=== PATIENT | female | born 1960 | race Caucasian/White ===

== ENCOUNTER 2016-11-16 15:23 | Inpatient (IN) | payer OTHER ==
[~2016-11-16] VITALS: Ht 182.9 cm; Wt 86.3 kg
[2016-11-19] MEDS ORDERED: HYDR-3580 PO (15:46)
[2016-11-19] MEDS ORDERED: PANC3600 PO (15:46)
[2016-11-19] MEDS ORDERED: LINA290C PO (15:46)
[2016-11-19] MEDS ORDERED: BETH25TA2 PO (15:46)
[2016-11-23] MEDS ORDERED: SODIUM CHLORID 0.9% 500 ML IV PRN (05:45)
[2016-11-23] MEDS ORDERED: TRANEXAMIC PERI-ARTICULAR 3,000 MG/NS 100 ML P-ARTICULR SCH ×2 (05:45)
[2016-11-23] MEDS ORDERED: LACTATED RINGER'S 1000 ML IV PRN (05:45)
[2016-11-23] MEDS ORDERED: VANCOMYCIN 1000 MG/NS 250 ML (for <70 kg) IV SCH ×2 (05:45)
[2016-11-23] MEDS ORDERED: DEXAMETHASONE SOD PHOS 20 MG/5 ML VIAL IV PRN (05:45)
[2016-11-23] MEDS ORDERED: METOPROLOL TARTRATE 25 MG TAB PO PRN (05:45)
[2016-11-23] MEDS ORDERED: POVIDONE IODINE 5% (ANTISEPSIS KIT) 4 APPLICATIONS EACH NARE PRN (05:45)
[2016-11-23] MEDS ORDERED: CHLORHEXIDINE GLUCONATE 4% SOLN 120 ML BTL TOPICAL SCH (05:45)
[2016-11-23] MEDS ORDERED: TRANEXAMIC ACID INJ 1,200 MG in SODIUM CHLORIDE 0.9% INJ 100 ML IV SCH (05:45)
[2016-11-23] MEDS ORDERED: POVIDONE IODINE 7.5% SCRUB 118 ML BOTTLE TOPICAL SCH (05:45)
[2016-11-23] MEDS ORDERED: INSULIN HUMAN REGULAR 1,000 UNITS/10 ML VIAL SQ PRN (05:45)
[2016-11-23] MEDS ORDERED: ceFAZolin 2 GM PREMIX 50 ML IV SCH (05:45)
[2016-11-23] MEDS ORDERED: EXPAREL PERI-ARTICULAR INJECTION (TOTAL VOL. 60 ML) P-ARTICULR SCH ×2 (05:45)
[2016-11-23] MEDS ORDERED: CHLORHEXIDINE GLUCONATE 2 % 1 PACK (2 CLOTHS) TOPICAL PRN (05:45)
[2016-11-23 05:50] VITALS: BP 108/70; PULSE 60; RESP 16; TEMP 98.1; O2SAT 97
[2016-11-23] MEDS ORDERED: GENTAMICIN SULFATE 80 MG/2 ML VIAL ONE (06:08)
[2016-11-23] MEDS ORDERED: ACETAMINOPHEN 1000 MG/100 ML VIAL IV ONE (06:35)
[2016-11-23] MEDS ORDERED: FAMOTIDINE 20 MG/2 ML VIAL ONE (06:35)
[2016-11-23] MEDS ORDERED: HYDR-3288 PO (06:52)
[2016-11-23] MEDS ORDERED: ENOX40P SQ ×2 (06:53→07:00)
[2016-11-23] MEDS ORDERED: ASPI81CH37 CHEW (06:54)
[2016-11-23] MEDS ORDERED: BISACODYL 10 MG SUPP RECTAL PRN (07:00)
[2016-11-23] MEDS ORDERED: NALOXONE HCL 0.4 MG/ML AMP IV PRN (07:00)
[2016-11-23] MEDS ORDERED: SODIUM CHLORIDE 0.9% FLUSH 5 ML FLUSH IVF PRN (07:00)
[2016-11-23] MEDS ORDERED: Post-op Orders (for Pharmacy) MISC XX ONE (07:00)
[2016-11-23] MEDS ORDERED: DO NOT ADM ANY ANTICOAGULANT DRUGS PRN (08:40)
[2016-11-23] MEDS ORDERED: *morphine SULFATE 8 MG/ML PERIprocedure ONLY ONE ×2 (08:45→08:57)
[2016-11-23] MEDS ORDERED: MIDAZOLAM HCL 2 MG/2 ML VIAL ONE (08:48)
[2016-11-23] MEDS ORDERED: fentaNYL CITRATE 250 MCG/5 ML AMP ONE (08:48)
[2016-11-23] MEDS ORDERED: PROPOFOL 200 MG/20 ML AMP IV ONE (09:16)
[2016-11-23] MEDS ORDERED: PHENYLEPH/NS 1000 MCG/10 ML SYR IV ONE (09:17)
[2016-11-23] MEDS ORDERED: NEOSTIGMINE 3 MG/3 ML SYR IV ONE (09:17)
[2016-11-23] MEDS ORDERED: LACTATED RINGER'S 1000 ML INJ 1,000 ML IV ONE (09:17)
[2016-11-23] MEDS ORDERED: ONDANSETRON HCL 4 MG/2 ML VIAL IV PUSH ONE (09:17)
[2016-11-23] MEDS: SODIUM CHLORIDE 0.9% FLUSH 5 ML FLUSH IVF SCH ×2 (09:18→20:48)
[2016-11-23] MEDS: SODIUM CHLOR 0.9% 1000 ML INJ 1,000 ML IV SCH ×2 (09:18→20:48)
--- NOTE | 2016-11-23 09:37 | RADRPT ---
EXAM DATE/TIME: 11/23/2016 09:06 [facility] COMPARISON: No previous studies available for comparison. INDICATIONS : Post op right total hip replacement. MEDICAL HISTORY : None. SURGICAL HISTORY : None. ENCOUNTER: Subsequent ACUITY: 1 day PAIN SCORE: Non-responsive. LOCATION: Right hip FINDINGS: The patient has undergone a right hip arthroplasty. Orthopedic hardware is in excellent position. The re is no evidence of complication. There are degenerative changes within the left hip. No destructive lesion is seen. CONCLUSION: 1. The patient is post right hip arthroplasty. Hardware is in good position. Carroll Abdullahi MD on November 23, 2016 at 9:29 Board Certified Radiologist. This report was verified electronically.
[2016-11-23 10:24] VITALS: BP 120/63; PULSE 60; RESP 16; TEMP 95.6; O2SAT 100
--- NOTE | 2016-11-23 10:52 | MP ---
cc: SIRENA REHMAN M.D. DATE OF SURGERY: 11/23/2016 PREOPERATIVE DIAGNOSIS Right hip osteoarthritis. POSTOPERATIVE DIAGNOSIS Right hip osteoarthritis. PROCEDURE Right total hip arthroplasty. SURGEON Dr. Sirena Rehman. JAVA SUPPORT ENGINEER Sirena Dobbins PA-C. ANESTHESIA General. ESTIMATED BLOOD LOSS 200 cc. COMPLICATIONS None. IMPLANTS USED DePuy Corail size 13 Press-Fit standard offset femoral stem, size 50 solid [place] Gription cup, size 32 mm ceramic head, +5 neck, 32 mm highly crosslinked polyethylene neutral liner. JUSTIFICATION This patient is a 56-year-old family with a history of severe osteoarthritis involving the right hip. She has severe disabling pain with standing, walking, ambulation, weightbearing activities and even severe pain at rest. She has failed greater than three months of nonoperative conservative treatment to include medications, therapy, ambulatory assisted aids, home exercise program and activity modification. X-rays of the right hip revealed severe end-stage osteoarthritis, [id number] joint space narrowing, subchondral sclerosis, subchondral cysts, osteophyte formation with subluxation. The patient was counseled as to the risks, benefits and alternatives of a total hip arthroplasty. The risks were discussed which include but not limited to anesthesia, infection, damage to nerves and blood vessels, pain, stiffness, fracture-dislocation, leg length discrepancy, blood clot, pulmonary embolism and even . The patient's pain is severe. She favored the benefits over the risks and wish to proceed with surgery. PROCEDURE IN DETAIL A written consent was obtained. The patient was identified by name, taken to the operating room and placed supine on the operating table. General anesthesia was administered as well as two grams of IV Ancef and one gram of IV vancomycin. The right and left feet were placed in padded traction boots. The right hip and right lower extremity were prepped and draped using isopropyl alcohol, Hibiclens solution and ChloraPrep solution. After a timeout was performed a longitudinal incision was made over the anterolateral aspect of the right hip. The fascial layer was incised. Dissection was carried over the tensor fascia travis and beneath the rectus femoris to allow exposure of the anterior hip capsule. A capsulotomy incision was performed. An oscillating saw was used to perform a femoral neck cut. The osteoarthritic femoral head and neck component was removed. A 10 blade scalpel use used to excise the labrum. Sequential reaming began at size 43 and was carried through to size 50. Subsequently a solid [place] 50 mm cup was implanted in approximately 45 degrees of abduction and 10 degrees of anteversion. There was good purchase and fixation after insertion of the cup. A screw hole eliminator was placed followed by a neutral liner. The liner was impacted in place and tested for stability. Attention was turned to the femur where the leg was externally rotated, adducted and extended. The capsule was released off the undersurface of the greater trochanter to allow for elevation and lateralization of the femur. A box cutting osteotome was used to gain entrance into the extramedullary canal of the femur. This was followed by a canal finder and sequential broaching up to size 13. A calcar planer was used to plane the calcar. Trial head and neck combinations were evaluated and final components implanted in place with the current implants. Fluoroscopic imaging showed appropriate implantation of components. The leg could be externally rotated 70 degrees and extended all the way down to the ground without evidence of anterior instability or impingement. The surgical wound was thoroughly irrigated with sterile saline pulse lavage antibiotic-impregnated solution. The fascia was closed with #1 Vicryl suture, subcutaneous layer with 2-0 Vicryl suture, and skin was closed with Dermabond. Sterile dressing was applied. The patient tolerated the procedure well with no intraoperative complications noted. Sirena Dobbins, physician finance assistant certified, was present during the entire procedure to include patient positioning and the procedure itself. The medical necessity of the physician finance assistant was indicated in this case due to the complexity of the procedure. He assisted with appropriate manipulation of the leg and also retraction of muscle, tendon, bone and neurovascular structures. He assisted with preparation of bone and also implantation of the prosthetic replacement. MD MAGGIE Oneil/CECY /8:28 AM /10:31 AM
[2016-11-23 12:00] VITALS: BP 117/79; PULSE 77; RESP 16; TEMP 97.9; O2SAT 95
[2016-11-23] MEDS ORDERED: PANT20 PO (12:44)
[2016-11-23] MEDS ORDERED: MIRA3350 PO (12:47)
[2016-11-23] MEDS ORDERED: DOCU100T9 PO (12:52)
--- NOTE | 2016-11-23 12:53 | PD.CONS ---
[facility] Request[facility] By Angel Bar MD. Reason for Consult Medical Management. Primary Care Physician Non-Staff Diagnoses: History of Present Illness This is a pleasant 55 y/o Female who was brought in by Orthopedic oral surgery technician with Diagnosis of Right Hip OA for Right total hip arthroplasty performed today, as we know she has chronic Abdominal pain, Obstipation, delayed gastric emptying, over 20 adenomatous polyps, left arm malignant melanoma in 2008, CAD status post Pacemaker placement in 2005. the patient consulted Orthopedic surgery with Right hip pain , treated conservatively first with injections, she has transmission specialist Dr. Parmar but no relieve, the patient seen in her bedroom in the presence of nurse, she states she has Low back pain secondary to multiple herniated discs managed by Pain medicine specialist Doctor Parmar for the last 10 years with injections, steroids and Narcotic pain medicine she has also injections to both knees and right hip, since last year in February started with Right hip pain and because did not improve with management given by Pain medicine specialist consulted Doctor Bar. Review of Systems Musculoskeletal: COMPLAINS OF: Joint pain Except as stated in HPI: all other systems reviewed are Neg Past Family Social History Allergies: Coded Allergies: No Known Allergies (Unverified , 11/23/16) Past Medical History OA Left arm malignant Melanoma 2008 Multiple Colon polyps Hyperlipidemia CAD status post Pacemaker placement chronic pain syndrome and chronic narcotic dependence Obstipation Past Surgical History Melanoma on left arm Left ovary removed Pacemaker placement Tonsillectomy Right ankle melanoma Reported Medications Reported Meds & Active Scripts Active Lovenox Inj (Enoxaparin Sodium) 40 Mg/0.4 Ml Syr 40 Mg SQ DAILY Aspirin Low Dose (Aspirin) 81 Mg Chew 81 Mg CHEW BID Lovenox Inj (Enoxaparin Sodium) 40 Mg/0.4 Ml Syr 40 Mg SQ DAILY [place]vine (Hydrocodone-Acetaminophen) 7.5-325 mg Tab 1-2 Tab PO Q6H PRN Reported Protonix (Pantoprazole Sodium) 20 Mg Tab 20 Mg PO DAILY Creon (Pancrelipase) 36,000-114,000-180,000 Units Cap 1 Cap PO TIDPC Bethanechol 25 Mg Tab 25 Mg PO TID Hydrocodone-Acetaminophen 7.5-325 mg Tab 1 Tab PO Q6H PRN Linzess (Linaclotide) 290 Mcg Cap 290 Mcg PO DAILY Active Ordered Medications Current Medications Medications (Trade) Dose Ordered Sig/Silvana Route Start Time Stop Time Status Last Admin Lactated Ringer's 1,000 ml @ 30 mls/hr Q24H PRN IV 11/23/16 05:45 11/26/16 05:44 11/23/16 06:00 (NS 500 ml Inj) 500 ml @ 30 mls/hr [id number] PRN IV 11/23/16 05:45 11/26/16 05:44 (Betadine 7.5% Scrub) 1 applic ONCE TOPICAL 11/23/16 05:45 11/26/16 05:44 Chlorhexidine Gluconate 1 applic 1 applic ONCE TOPICAL 11/23/16 05:45 11/26/16 05:44 Tranexamic Acid 1200 mg/Sodium Chloride 112 ml @ 200 mls/hr ONCE IV 11/23/16 05:45 11/23/16 16:00 11/23/16 07:37 Bupivacaine Liposome 20 ml/ Sodium Chloride 60 ml @ 120 mls/hr ONCE P-ARTICULR 11/23/16 05:45 11/23/16 16:00 11/23/16 07:37 Tranexamic Acid 3000 mg/Sodium Chloride 130 ml @ 260 mls/hr ONCE P-ARTICULR 11/23/16 05:45 11/23/16 16:00 11/23/16 07:38 (NS 1000 ml Inj) 1,000 ml @ 100 mls/hr Q10H IV 11/23/16 07:00 11/23/16 09:18 (NS Flush) 2 ml UNSCH PRN IVF 11/23/16 07:00 IV Flush 2 ml 2 ml BID IVF 11/23/16 09:00 11/23/16 09:18 (Ancef Inj/NS Inj) 100 ml @ 200 mls/hr Q6H IV 11/23/16 12:00 11/24/16 00:29 (Lovenox Inj) 40 mg Q24H SQ 11/24/16 08:00 12/03/16 08:01 (Morphine Inj) 3 mg Q3H PRN IV PUSH 11/23/16 07:00 (Irvine 10-325 Mg) 1 tab Q4H PRN PO 11/23/16 07:00 (Irvine 10-325 Mg) 2 tab Q6H PRN PO 11/23/16 07:00 (Theragran M Tab) 1 tab BID PO 11/24/16 21:00 01/23/17 20:59 (Zofran Inj) 4 mg Q6H PRN IVP 11/23/16 07:00 (Colace) 100 mg BID PO 11/24/16 21:00 (Ambien) 5 mg HS PRN PO 11/23/16 07:00 (Dulcolax Supp) 10 mg DAILY PRN RECTAL 11/23/16 07:00 (Narcan Inj) 0.4 mg UNSCH PRN IV 11/23/16 07:00 (Benadryl Inj) 25 mg Q6H PRN IV 11/23/16 07:00 Miscellaneous Information ALL NURSING DEPARTME... UNSCH PRN .XX 11/23/16 08:40 11/24/16 08:39 Family History Mother with Ovarian Cancer but really do not know her history due to no communication. Social History Recent history of Tobacco dependency until May this year Disabled patient Occasional alcohol abuse Physical Exam Vital Signs Vital Signs Date Time Temp Pulse Resp B/P Pulse Ox O2 Delivery O2 Flow Rate FiO2 11/23/16 12:00 97.9 77 16 117/79 95 11/23/16 10:24 95.6 60 16 120/63 100 11/23/16 09:30 97.5 60 16 124/62 100 Nasal Cannula 2 11/23/16 09:15 62 17 130/57 100 Nasal Cannula 2 11/23/16 09:00 59 15 129/61 99 Nasal Cannula 2 11/23/16 08:45 62 16 123/56 100 Nasal Cannula 2 11/23/16 08:41 97.5 73 13 106/64 98 Nasal Cannula 2 11/23/16 05:50 98.1 60 16 108/70 97 Physical Exam GENERAL: This is a well-nourished, well-developed patient, in no apparent distress. SKIN: No rashes, ecchymoses or lesions. Cool and dry. HEAD: Atraumatic. Normocephalic. No temporal or scalp tenderness. EYES: Pupils equal round and reactive. Extraocular motions intact. ENT: Nose without bleeding, purulent drainage or septal hematoma. NECK: Trachea midline. No JVD or lymphadenopathy. Supple, nontender, no meningeal signs. CARDIOVASCULAR: Regular rate and rhythm without murmurs, gallops, or rubs. RESPIRATORY: Clear to auscultation. Breath sounds equal bilaterally. No wheezes , rales, or rhonchi. GASTROINTESTINAL: Abdomen soft, non-tender, nondistended. No hepato-splenomegaly , or palpable masses. No guarding. MUSCULOSKELETAL: Extremities without clubbing, cyanosis, or edema. Right hip dressed. NEUROLOGICAL: Awake and alert. No Focal deficits. Laboratory Laboratory Tests Test 11/23/16 05:58 Blood Type A POSITIVE Antibody Screen NEGATIVE Blood Bank Comment Imaging Last Impressions Hip and Pelvis X-Ray 11/23/16 0000 Signed Impressions: Service Date/Time: Wednesday, November 23, 2016 09:06 - CONCLUSION: 1. The patient is post right hip arthroplasty. Hardware is in good position. Carroll Abdullahi MD Assessment and Plan Assessment and Plan 1. Right Hip OA status post Right total hip arthroplasty 11/24/16 2. Left arm malignant melanoma 2009 and right ankle melanoma removed 3. CAD status post Pacemaker placement 4. chronic Pain syndrome and narcotic dependence pain medicine specialist Doctor Ghulam as Primary Pain medicine specialist 5. Obstipation asking for her Linzess will continue this medicine the patient has it if not provided by the hospital. Appreciated Doctor Angel Bar for this kindly consult, patient stable will follow along with you. DVT prophylaxis by Orthopedic surgery. Code Status Full Code. Discussed Condition With Patient and nurse, all questions answered to the best of my abilities Maximiliano Claire MD Nov 23, 2016 12:53
--- NOTE | 2016-11-23 13:10 | HHI.DCPOC ---
Discharge Care Plan Diagnosis: (1) Primary localized osteoarthrosis, pelvic region and thigh Your Health Problems Are: Difficulty with ADL Goals to Promote Your Health * To prevent worsening of your condition and complications * To maintain your health at the optimal level Directions to Meet Your Goals Take your medications as prescribed Follow your dietary instruction Follow activity as directed Keep your appointments as scheduled Take your immunizations and boosters as scheduled If your symptoms worsen call your PCP, if no PCP go to Urgent Care Center or Emergency Room Smoking is Dangerous to Your Health. Avoid second hand smoke Call the 24-hour hour crisis hotline for domestic abuse at Angel Dobbins Nov 23, 2016 13:10
--- NOTE | 2016-11-23 13:11 | HHI.FF ---
Face to Face Verification Diagnosis: (1) Primary localized osteoarthrosis, pelvic region and thigh Physical Therapy Gait training, Safety evaluation, Transfer training, bed to chair Hip: Total hip, Protocol: Right Right LE Weight Bearing: WB as tolerated Nursing RN: 3 days/week x 2 weeks Nursing: Bre teaching, Dressing changes Dressing Changes: Daily dressing change I have seen patient Merry Solares on 11/23/16. My clinical findings support the need for the requested home health care services because: Limited ability to care for self High risk of falls I certify that my clinical findings support that this patient is homebound because: Post-op weakness Unsteady gait/balance Angel Dobbins Nov 23, 2016 13:11
[2016-11-23] MEDS ORDERED: WALKER WHEELS/F1 MIS (13:13)
[2016-11-23] MEDS ORDERED: COMMODE 3-IN-11 MIS (13:13)
[2016-11-23] MEDS: ACETAMINOPHEN/HYDROcodone 325 MG/10 MG TAB PO PRN ×2 (14:35→20:48)
[2016-11-23] MEDS: ONDANSETRON HCL 4 MG/2 ML VIAL IVP PRN ×2 (14:38→20:49)
--- NOTE | 2016-11-23 15:14 | RADRPT ---
EXAM DATE/TIME: 11/23/2016 07:06 [facility] COMPARISON: HIP RIGHT (AP&LAT 2/3VWS) W AP PELVIS, November 23, 2016, 9:06. INDICATIONS : Right anterior hip replacement. MEDICAL HISTORY : Arthritis. SURGICAL HISTORY : Pacemaker. ENCOUNTER: Initial ACUITY: 1 day PAIN SCORE: Non-responsive. LOCATION: Right anterior hip. FINDINGS: Total hip arthroplasty is in place. The femoral and acetabular components appear intact. There are no signs of loosening or fracture. CONCLUSION: Intact total hip prosthesis for nataliia. Winter Araiza MD on November 23, 2016 at 15:13 Board Certified Radiologist. This report was verified electronically.
[2016-11-23 16:00] VITALS: BP 100/60; PULSE 73; RESP 16; TEMP 97.7; O2SAT 96
[2016-11-23 17:35] LABS: MAGNESIUM 1.2 MG/DL (1.5-2.5)
[2016-11-23 18:01] LABS: HDL CHOLESTEROL 45.3 MG/DL (40.0-60.0); LDL CHOLESTEROL 119 MG/DL (0-99)
[2016-11-23 20:15] VITALS: BP 98/55; PULSE 76; RESP 16; TEMP 98.3; O2SAT 99
[2016-11-23] MEDS: ZOLPIDEM TARTRATE 5 MG TAB PO PRN (20:48)
[2016-11-23] MEDS: diphenhydrAMINE HCL 50 MG/ML VIAL IV PRN (21:40)
[2016-11-24 00:10] VITALS: BP 107/51; PULSE 80; RESP 16; TEMP 98.7; O2SAT 96
[2016-11-24] MEDS: SODIUM CHLOR 0.9% 1000 ML INJ 1,000 ML IV SCH ×3 (02:27→22:50)
[2016-11-24 04:20] VITALS: BP 90/51; PULSE 76; RESP 16; TEMP 98.2; O2SAT 98
[2016-11-24] MEDS: ONDANSETRON HCL 4 MG/2 ML VIAL IVP PRN ×4 (06:08→23:02)
[2016-11-24] MEDS: ACETAMINOPHEN/HYDROcodone 325 MG/10 MG TAB PO PRN ×4 (06:09→23:02)
[2016-11-24 06:43] LABS: HEMATOCRIT 25.9 % (35.0-46.0); MEAN CELL VOLUME 90.9 FL (80.0-100.0); MEAN CORPUSCULAR HEMOGLOBIN 30.8 PG (27.0-34.0); MEAN CORPUSCULAR HGB CONC 33.8 % (32.0-36.0); PLATELET COUNT 177 TH/MM3 (150-450); RED BLOOD COUNT 2.85 MIL/MM3 (4.00-5.30); RED CELL DISTRIBUTION WIDTH 13.1 % (11.6-17.2); REVIEW FLAG FINAL; WHITE BLOOD COUNT 7.4 TH/MM3 (4.0-11.0)
[2016-11-24 06:49] LABS: BICARBONATE 25.8 MEQ/L (21.0-32.0); POTASSIUM 4.2 MEQ/L (3.5-5.1)
[2016-11-24 08:00] VITALS: BP 109/55; PULSE 75; RESP 18; TEMP 98.8; O2SAT 99
[2016-11-24] MEDS: ENOXAPARIN SODIUM 40 MG/0.4 ML SYRINGE SQ SCH (08:42)
[2016-11-24] MEDS: SODIUM CHLORIDE 0.9% FLUSH 5 ML FLUSH IVF SCH ×2 (08:42→21:00)
--- NOTE | 2016-11-24 08:47 | HHI.PR ---
Subjective Remarks This is a pleasant 55 y/o Female who was brought in by Orthopedic garnishment specialist with Diagnosis of Right Hip OA for Right total hip arthroplasty performed today, as we know she has chronic Abdominal pain, Obstipation, delayed gastric emptying, over 20 adenomatous polyps, left arm malignant melanoma in 2008, CAD status post Pacemaker placement in 2005. the patient consulted Orthopedic surgery with Right hip pain , treated conservatively first with injections, she has talent management specialist Dr. Parmar but no relieve, the patient seen in her bedroom in the presence of nurse, she states she has Low back pain secondary to multiple herniated discs managed by Pain medicine specialist Doctor Parmar for the last 10 years with injections, steroids and Narcotic pain medicine she has also injections to both knees and right hip, since last year in February started with Right hip pain and because did not improve with management given by Pain medicine specialist consulted Doctor Yosvany. 11/24: Seen in her bedroom, asked for replacement of Magnesium was 1.2 yesterday afternoon, had some hypotension she received Metoprolol yesterday was removed, has Vitamin B12 deficiency, will need vitamin B 12 replacement follow magnesium level before discharge. no nausea, vomit or diarrhea. Objective Vital Signs Date Time Temp Pulse Resp B/P Pulse Ox O2 Delivery O2 Flow Rate FiO2 11/24/16 04:20 98.2 76 16 90/51 98 11/24/16 00:10 98.7 80 16 107/51 96 11/23/16 20:15 98.3 76 16 98/55 99 11/23/16 16:00 97.7 73 16 100/60 96 11/23/16 12:00 97.9 77 16 117/79 95 11/23/16 10:24 95.6 60 16 120/63 100 11/23/16 09:30 97.5 60 16 124/62 100 Nasal Cannula 2 11/23/16 09:15 62 17 130/57 100 Nasal Cannula 2 11/23/16 09:00 59 15 129/61 99 Nasal Cannula 2 11/23/16 08:45 62 16 123/56 100 Nasal Cannula 2 I/O 11/23/16 11/23/16 11/23/16 11/24/16 11/24/16 11/24/16 07:00 15:00 23:00 07:00 15:00 23:00 Intake Total 1250 ml 360 ml 240 ml Output Total 1125 ml 1150 ml 700 ml Balance 125 ml -790 ml -460 ml Intake Oral 250 ml 360 ml 240 ml Other 1000 ml Output Urine Total 475 ml 1150 ml 700 ml Estimated Blood Loss 650 ml # Bowel Movements 0 Result Diagram: 11/24/16 0526 11/24/16 0526 Imaging Last Impressions Hip and Pelvis X-Ray 11/23/16 0000 Signed Impressions: Service Date/Time: Wednesday, November 23, 2016 09:06 - CONCLUSION: 1. The patient is post right hip arthroplasty. Hardware is in good position. Carroll Abdullahi MD Hip X-Ray 11/23/16 0000 Signed Impressions: Service Date/Time: Wednesday, November 23, 2016 07:06 - CONCLUSION: Intact total hip prosthesis for technique. KRose Araiza MD Procedures Right Hip OA status post Right total hip arthroplasty 11/24/16 Other Results Laboratory Tests Test 11/23/16 11/23/16 11/24/16 05:58 16:40 05:26 Blood Type A POSITIVE Antibody Screen NEGATIVE Blood Bank Comment Magnesium Level 1.2 MG/DL Triglycerides Level 78 MG/DL Cholesterol Level 180 MG/DL LDL Cholesterol 119 MG/DL HDL Cholesterol 45.3 MG/DL Cholesterol/HDL Ratio 3.97 RATIO Vitamin B12 Level 238 PG/ML Folate GREATER THAN 20.0 NG/ML Thyroid Stimulating Hormone 0.873 uIU/ML 3rd Gen White Blood Count 7.4 TH/MM3 Red Blood Count 2.85 MIL/MM3 Hemoglobin 8.8 GM/DL Hematocrit 25.9 % Mean Corpuscular Volume 90.9 FL Mean Corpuscular Hemoglobin 30.8 PG Mean Corpuscular Hemoglobin 33.8 % Concent Red Cell Distribution Width 13.1 % Platelet Count 177 TH/MM3 Mean Platelet Volume 8.1 FL Sodium Level 141 MEQ/L Potassium Level 4.2 MEQ/L Chloride Level 108 MEQ/L Carbon Dioxide Level 25.8 MEQ/L Anion Gap 7 MEQ/L Blood Urea Nitrogen 7 MG/DL Creatinine 0.72 MG/DL Estimat Glomerular Filtration 84 ML/MIN Rate Random Glucose 98 MG/DL Calcium Level 8.0 MG/DL Objective Remarks GENERAL: This is a well-nourished, well-developed patient, in no apparent distress. SKIN: No rashes, ecchymoses or lesions. Cool and dry. HEAD: Atraumatic. Normocephalic. No temporal or scalp tenderness. EYES: Pupils equal round and reactive. Extraocular motions intact. ENT: Nose without bleeding, purulent drainage or septal hematoma. NECK: Trachea midline. No JVD or lymphadenopathy. Supple, nontender, no meningeal signs. CARDIOVASCULAR: Regular rate and rhythm without murmurs, gallops, or rubs. RESPIRATORY: Clear to auscultation. Breath sounds equal bilaterally. No wheezes , rales, or rhonchi. GASTROINTESTINAL: Abdomen soft, non-tender, nondistended. No hepato-splenomegaly , or palpable masses. No guarding. MUSCULOSKELETAL: Extremities without clubbing, cyanosis, or edema. Right hip dressed. NEUROLOGICAL: Awake and alert. No Focal deficits. Medications and IVs Current Medications Medications (Trade) Dose Ordered Sig/Silvana Route Start Time Stop Time Status Last Admin Lactated Ringer's 1,000 ml @ 30 mls/hr Q24H PRN IV 11/23/16 05:45 11/26/16 05:44 11/23/16 06:00 (NS 500 ml Inj) 500 ml @ 30 mls/hr [id number] PRN IV 11/23/16 05:45 11/26/16 05:44 (Betadine 7.5% Scrub) 1 applic ONCE TOPICAL 11/23/16 05:45 11/26/16 05:44 Chlorhexidine Gluconate 1 applic 1 applic ONCE TOPICAL 11/23/16 05:45 11/26/16 05:44 (NS 1000 ml Inj) 1,000 ml @ 100 mls/hr Q10H IV 11/23/16 07:00 11/23/16 20:48 (NS Flush) 2 ml UNSCH PRN IVF 11/23/16 07:00 (NS Flush) 2 ml BID IVF 11/23/16 09:00 11/23/16 20:48 (Lovenox Inj) 40 mg Q24H SQ 11/24/16 08:00 12/03/16 08:01 (Morphine Inj) 3 mg Q3H PRN IV PUSH 11/23/16 07:00 ([place]er 10-325 Mg) 1 tab Q4H PRN PO 11/23/16 07:00 11/24/16 06:09 ([place] 10-325 Mg) 2 tab Q6H PRN PO 11/23/16 07:00 11/23/16 20:48 (Theragran M Tab) 1 tab BID PO 11/24/16 21:00 01/23/17 20:59 (Zofran Inj) 4 mg Q6H PRN IVP 11/23/16 07:00 11/24/16 06:08 (Colace) 100 mg BID PO 11/24/16 21:00 (Ambien) 5 mg HS PRN PO 11/23/16 07:00 11/23/16 20:48 (Dulcolax Supp) 10 mg DAILY PRN RECTAL 11/23/16 07:00 (Narcan Inj) 0.4 mg UNSCH PRN IV 11/23/16 07:00 (Benadryl Inj) 25 mg Q6H PRN IV 11/23/16 07:00 11/23/16 21:40 A/P Assessment and Plan 1. Right Hip OA status post Right total hip arthroplasty 11/24/16 2. Left arm malignant melanoma 2009 and right ankle melanoma removed 3. CAD status post Pacemaker placement 4. Chronic Pain syndrome and narcotic dependence pain medicine specialist Doctor Ghulam as Primary Pain medicine specialist 5. Obstipation asking for her Linzess will continue this medicine the patient has it if not provided by the hospital. 6. Chronic anemia Hemoglobin 8.8 Normocytic anemia will need to be followed as outpatient and get full workup. 7. Vitamin B 12 deficiency is possible with Vitamin B 12 level in 238 may need further evaluation as outpatient giving Vitamin B 12 replacement post surgical 8. Hypomagnesemia replaced and following. DVT prophylaxis by Orthopedic surgery. Code Status Full Code. Discussed Condition With Patient and nurse in the room, all questions answered to the best of my abilities. Maximiliano Claire MD Nov 24, 2016 08:47
[2016-11-24] MEDS ORDERED: CYANOCOBALAMIN 1000 MCG/ML VIAL IM ONE (09:00)
[2016-11-24] MEDS: MAGNESIUM SULFATE 1 GM PREMIX 100 ML IV SCH ×2 (09:00→11:00)
[2016-11-24] MEDS: MAGNESIUM OXIDE 400 MG TAB PO SCH ×2 (09:00→21:50)
[2016-11-24] MEDS: MORPHINE SULFATE 8 MG/ML INJ IV PUSH PRN ×2 (09:01→12:19)
--- NOTE | 2016-11-24 09:13 | PD.ORT.PN ---
Subjective Post Op Day #: 1 Subjective Remarks having back pain aggravate by the bed. has not been able to get up as of yet. Objective Vitals Vital Signs Date Time Temp Pulse Resp B/P Pulse Ox O2 Delivery O2 Flow Rate FiO2 11/24/16 04:20 98.2 76 16 90/51 98 11/24/16 00:10 98.7 80 16 107/51 96 11/23/16 20:15 98.3 76 16 98/55 99 11/23/16 16:00 97.7 73 16 100/60 96 11/23/16 12:00 97.9 77 16 117/79 95 11/23/16 10:24 95.6 60 16 120/63 100 11/23/16 09:30 97.5 60 16 124/62 100 Nasal Cannula 2 11/23/16 09:15 62 17 130/57 100 Nasal Cannula 2 I/O 11/23/16 11/23/16 11/23/16 11/24/16 11/24/16 11/24/16 07:00 15:00 23:00 07:00 15:00 23:00 Intake Total 1250 ml 360 ml 240 ml Output Total 1125 ml 1150 ml 700 ml Balance 125 ml -790 ml -460 ml Intake Oral 250 ml 360 ml 240 ml Other 1000 ml Output Urine Total 475 ml 1150 ml 700 ml Estimated Blood Loss 650 ml # Bowel Movements 0 Result Diagram: 11/24/16 0526 11/24/1626 Objective Remarks in bed, appears uncomfortable dressing c/d/i neg homans nvi Assessment & Plan Ortho Post Op Day #: 1 Problem List: Assessment and Plan s/p R GAMALIEL wbat daily dressing changes lovenox chronic back pain d/c planning home with c and pt f/up dr. murillo 2 weeks Angel Dobbins Nov 24, 2016 09:13
[2016-11-24 09:15] LABS: INDIRECT BILIRUBIN 0.3 MG/DL (0.0-0.8); TOTAL BILIRUBIN ADULT 0.4 MG/DL (0.2-1.0)
[2016-11-24 12:00] VITALS: BP 129/60; PULSE 118; RESP 16; TEMP 99.1; O2SAT 97
[2016-11-24 16:00] VITALS: BP 120/58; PULSE 87; RESP 16; TEMP 99.6; O2SAT 96
[2016-11-24 18:38] LABS: HEMOGLOBIN A1a 1.1 %; HEMOGLOBIN A1b 1.6 %; HEMOGLOBIN LA1C 1.7 %; HEMOGLOBIN P3 3.4 %
[2016-11-24 19:12] VITALS: BP 110/61; PULSE 98; RESP 18; TEMP 99.4; O2SAT 96
[2016-11-24] MEDS: ZOLPIDEM TARTRATE 5 MG TAB PO PRN (21:49)
[2016-11-24] MEDS: MULTIVITAMINS/MINERALS THERAPEUTIC TAB PO SCH (21:49)
[2016-11-24] MEDS: DOCUSATE SODIUM 100 MG CAP PO SCH (21:50)
[2016-11-24] MEDS: diphenhydrAMINE HCL 50 MG/ML VIAL IV PRN (21:52)
[2016-11-25] VITALS (7 sets, daily range): BP systolic 86–113; BP diastolic 52–63; PULSE 86–95; RESP 17–18; TEMP 98.7–99.9; O2SAT 91–96
[2016-11-25] MEDS: ONDANSETRON HCL 4 MG/2 ML VIAL IVP PRN ×2 (05:36→11:41)
[2016-11-25] MEDS: ACETAMINOPHEN/HYDROcodone 325 MG/10 MG TAB PO PRN ×3 (05:37→18:24)
--- NOTE | 2016-11-25 07:51 | PD.ORT.PN ---
Subjective Post Op Day #: 2 Subjective Remarks different bed has helped back pain. feeling a little better. still weak in R leg. Objective Vitals Vital Signs Date Time Temp Pulse Resp B/P Pulse Ox O2 Delivery O2 Flow Rate FiO2 11/25/16 03:02 101/54 11/25/16 00:38 98.7 86 18 113/58 94 11/24/16 19:12 99.4 98 18 110/61 96 11/24/16 16:00 99.6 87 16 120/58 96 11/24/16 12:00 99.1 118 16 129/60 97 11/24/16 08:00 98.8 75 18 109/55 99 I/O 11/24/16 11/24/16 11/24/16 11/25/16 11/25/16 11/25/16 07:00 15:00 23:00 07:00 15:00 23:00 Intake Total 240 ml 2868 ml 480 ml 360 ml Output Total 700 ml Balance -460 ml 2868 ml 480 ml 360 ml Intake Oral 240 ml 480 ml 480 ml 360 ml IV Total 2388 ml Output Urine Total 700 ml # Voids 3 3 1 # Bowel Movements 0 0 0 Result Diagram: 11/24/1652511/24/16525 Objective Remarks in bed, nad incision no erythema, no drainage thigh soft neg homans nvi Assessment & Plan Ortho Post Op Day #: 2 Problem List: Assessment and Plan s/p R GAMALIEL wbat daily dressing changes lovenox PT chronic back pain d/c planning home with [facility] and pt - anticipate d/c today or tomorrow depending on PT progress f/up dr. murillo 2 weeks Angel Dobbins Nov 25, 2016 07:51
[2016-11-25] MEDS: DOCUSATE SODIUM 100 MG CAP PO SCH ×2 (08:26→20:22)
[2016-11-25] MEDS: SODIUM CHLOR 0.9% 1000 ML INJ 1,000 ML IV SCH ×4 (08:26→20:23)
[2016-11-25] MEDS: MULTIVITAMINS/MINERALS THERAPEUTIC TAB PO SCH ×2 (08:26→20:22)
[2016-11-25] MEDS: MAGNESIUM OXIDE 400 MG TAB PO SCH ×2 (08:26→20:22)
[2016-11-25 08:27] LABS: HEMATOCRIT 25.5 % (35.0-46.0); MEAN CELL VOLUME 92.3 FL (80.0-100.0); MEAN CORPUSCULAR HEMOGLOBIN 30.4 PG (27.0-34.0); MEAN CORPUSCULAR HGB CONC 32.9 % (32.0-36.0); PLATELET COUNT 152 TH/MM3 (150-450); RED BLOOD COUNT 2.76 MIL/MM3 (4.00-5.30); REVIEW FLAG FINAL; WHITE BLOOD COUNT 6.7 TH/MM3 (4.0-11.0)
[2016-11-25] MEDS: ENOXAPARIN SODIUM 40 MG/0.4 ML SYRINGE SQ SCH (08:27)
[2016-11-25] MEDS: SODIUM CHLORIDE 0.9% FLUSH 5 ML FLUSH IVF SCH ×2 (08:27→20:23)
[2016-11-25 08:56] LABS: BICARBONATE 27.1 MEQ/L (21.0-32.0); MAGNESIUM 1.8 MG/DL (1.5-2.5); POTASSIUM 3.6 MEQ/L (3.5-5.1)
--- NOTE | 2016-11-25 13:59 | HHI.PR ---
Subjective Remarks Gradual improvement in ambulation. Patient does not seem ready for home. She prefers discharge to home rather than a retirement facility. Given her immunocompromise this might not be a bad idea. Complaints of nausea today. Objective Vital Signs Date Time Temp Pulse Resp B/P Pulse Ox O2 Delivery O2 Flow Rate FiO2 11/25/16 11:00 98.7 93 18 93/63 93 11/25/16 08:05 95 11/25/16 08:00 99.8 95 18 97/52 91 11/25/16 03:02 101/54 11/25/16 00:38 98.7 86 18 113/58 94 11/24/16 19:12 99.4 98 18 110/61 96 11/24/16 16:00 99.6 87 16 120/58 96 I/O 11/24/16 11/24/16 11/24/16 11/25/16 11/25/16 11/25/16 07:00 15:00 23:00 07:00 15:00 23:00 Intake Total 240 ml 2868 ml 480 ml 360 ml Output Total 700 ml Balance -460 ml 2868 ml 480 ml 360 ml Intake Oral 240 ml 480 ml 480 ml 360 ml IV Total 2388 ml Output Urine Total 700 ml # Voids 3 3 1 # Bowel Movements 0 0 0 Result Diagram: 11/25/16 0653 11/25/16 0653 Procedures Right Hip OA status post Right total hip arthroplasty 11/24/16 Objective Remarks GENERAL: NAD, A&Ox3 HEAD: Normocephalic. NECK: Supple, trachea midline. No lymphadenopathy. EYES: No scleral icterus. No injection or drainage. CARDIOVASCULAR: Regular rate and rhythm without murmurs, gallops, or rubs. RESPIRATORY: Breath sounds equal bilaterally. No accessory muscle use. GASTROINTESTINAL: Abdomen soft, non-tender, nondistended. MUSCULOSKELETAL: No cyanosis, or edema. SKIN: Warm and dry. NEURO: No focal neurological deficitis. A/P Problem List: (1) Primary localized osteoarthrosis, pelvic region and thigh ICD Code: M16.10 (2) History of melanoma ICD Code: Z85.820 Assessment and Plan Assessment and Plan 56-year-old female status post total right hip replacement Right Hip OA status post Right total hip arthroplasty Completed on 11/24/16 Doing well Continue PT Orthopedics following Continue pain treatments as needed Continue physical therapy Plan for discharge to home tomorrow Left arm malignant melanoma 2008 and right ankle melanoma removed Follows in outpatient Nausea Zofran Follow for improvement CAD status post Pacemaker placement No arrhythmias Follow clinically Chronic Pain syndrome and narcotic dependence 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
[2016-11-25] MEDS: ONDANSETRON HCL 4 MG/5 ML UDC PO PRN (18:24)
[2016-11-26] VITALS: BP 96/61; PULSE 83; RESP 16; TEMP 98; O2SAT 98
[2016-11-26] MEDS: ACETAMINOPHEN/HYDROcodone 325 MG/10 MG TAB PO PRN ×3 (00:56→14:12)
[2016-11-26] MEDS: ZOLPIDEM TARTRATE 5 MG TAB PO PRN (00:59)
[2016-11-26] MEDS ORDERED: diphenhydrAMINE HCL 25 MG CAP PO PRN (03:30)
[2016-11-26 04:00] VITALS: BP 82/59; PULSE 79; RESP 17; TEMP 98.3; O2SAT 97
[2016-11-26 08:00] VITALS: BP 81/55; PULSE 76; RESP 18; TEMP 99.1; O2SAT 97
--- NOTE | 2016-11-26 08:00 | PD.ORT.PN ---
Subjective Post Op Day #: 3 Subjective Remarks different bed has helped back pain. feeling a little better. feels comfortable going home today. Objective Vitals Vital Signs Date Time Temp Pulse Resp B/P Pulse Ox O2 Delivery O2 Flow Rate FiO2 11/26/16 04:00 98.3 79 17 82/59 97 11/26/16 00:00 98.0 83 16 96/61 98 11/25/16 20:00 99.9 86 17 86/56 95 11/25/16 16:00 99.1 88 18 94/60 96 11/25/16 11:00 98.7 93 18 93/63 93 11/25/16 08:05 95 11/25/16 08:00 99.8 95 18 97/52 91 I/O 11/25/16 11/25/16 11/25/16 11/26/16 11/26/16 11/26/16 06:59 14:59 22:59 06:59 14:59 22:59 Intake Total 360 ml 850 ml 480 ml Balance 360 ml 850 ml 480 ml Intake Oral 360 ml 850 ml 480 ml # Voids 1 3 1 # Bowel Movements 0 1 Result Diagram: 11/25/16 0653 11/25/16 0653 Objective Remarks in bed, nad dressing c/d/i thigh soft neg homans nvi Assessment & Plan Ortho Post Op Day #: 3 Problem List: Assessment and Plan s/p R GAMALIEL wbat daily dressing changes lovenox PT chronic back pain d/c planning home with [facility] and pt - cleared for d/c today f/up dr. murillo 2 weeks Angel Dobbins Nov 26, 2016 08:00
[2016-11-26] MEDS: DOCUSATE SODIUM 100 MG CAP PO SCH (08:11)
[2016-11-26] MEDS: MAGNESIUM OXIDE 400 MG TAB PO SCH (08:12)
[2016-11-26] MEDS: MULTIVITAMINS/MINERALS THERAPEUTIC TAB PO SCH (08:12)
[2016-11-26] MEDS: ENOXAPARIN SODIUM 40 MG/0.4 ML SYRINGE SQ SCH (08:14)
[2016-11-26] MEDS: ONDANSETRON HCL 4 MG/5 ML UDC PO PRN ×2 (08:14→14:12)
[2016-11-26] MEDS: SODIUM CHLORIDE 0.9% FLUSH 5 ML FLUSH IVF SCH (08:18)
[2016-11-26] MEDS: SODIUM CHLOR 0.9% 1000 ML INJ 1,000 ML IV SCH (08:20)
[2016-11-26 12:00] VITALS: BP 81/50; PULSE 73; RESP 18; TEMP 98.5; O2SAT 93
[2016-11-26] MEDS ORDERED: ZOFR4TAB PO (12:25)
[2016-11-26] MEDS ORDERED: PROM25TA10 PO (12:25)
--- NOTE | 2016-11-26 15:38 | HHI.PR ---
Subjective Remarks Improved ambulation today. Patient is medically stable for discharge. She is stable for discharge to home rather than senior care facility. Nausea has resolved. Medically clear for discharge today. Objective Vital Signs Date Time Temp Pulse Resp B/P Pulse Ox O2 Delivery O2 Flow Rate FiO2 11/26/16 12:00 98.5 73 18 81/50 93 11/26/16 08:00 99.1 76 18 81/55 97 11/26/16 04:00 98.3 79 17 82/59 97 11/26/16 00:00 98.0 83 16 96/61 98 11/25/16 20:00 99.9 86 17 86/56 95 11/25/16 16:00 99.1 88 18 94/60 96 I/O 11/25/16 11/25/16 11/25/16 11/26/16 11/26/16 11/26/16 07:00 15:00 23:00 07:00 15:00 23:00 Intake Total 360 ml 850 ml 480 ml Balance 360 ml 850 ml 480 ml Intake Oral 360 ml 850 ml 480 ml # Voids 1 3 1 # Bowel Movements 0 1 Result Diagram: 11/25/16 0653 11/25/16 0653 Procedures Right Hip OA status post Right total hip arthroplasty 11/24/16 Objective Remarks GENERAL: NAD, A&Ox3 HEAD: Normocephalic. NECK: Supple, trachea midline. No lymphadenopathy. EYES: No scleral icterus. No injection or drainage. CARDIOVASCULAR: Regular rate and rhythm without murmurs, gallops, or rubs. RESPIRATORY: Breath sounds equal bilaterally. No accessory muscle use. GASTROINTESTINAL: Abdomen soft, non-tender, nondistended. MUSCULOSKELETAL: No cyanosis, or edema. SKIN: Warm and dry. NEURO: No focal neurological deficitis. A/P Problem List: (1) Primary localized osteoarthrosis, pelvic region and thigh ICD Code: M16.10 (2) History of melanoma ICD Code: Z85.820 Assessment and Plan Assessment and Plan 56-year-old female status post total right hip replacement. Stable for discharge to home today. 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
[2016-11-26 16:02] LABS: HEMATOCRIT 25.9 % (35.0-46.0); MEAN CELL VOLUME 92.1 FL (80.0-100.0); MEAN CORPUSCULAR HEMOGLOBIN 30.5 PG (27.0-34.0); MEAN CORPUSCULAR HGB CONC 33.1 % (32.0-36.0); PLATELET COUNT 189 TH/MM3 (150-450); RED BLOOD COUNT 2.81 MIL/MM3 (4.00-5.30); RED CELL DISTRIBUTION WIDTH 12.9 % (11.6-17.2); REVIEW FLAG FINAL; WHITE BLOOD COUNT 5.9 TH/MM3 (4.0-11.0)
[2016-11-26 16:27] LABS: BICARBONATE 28.8 MEQ/L (21.0-32.0); POTASSIUM 3.8 MEQ/L (3.5-5.1)
== END 2016-11-26 15:10 | disposition home health service (06) | DRG 470 ==
LOC: HSDI 11-23 05:13 → N06A 11-23 10:02
PROVIDERS: ADMIT Orthopaedic Surgery Sports Medicine; ATTEND Orthopaedic Surgery Sports Medicine
PROC: 0SR904A Replacement of Right Hip Joint with Ceramic on Polyethylene Synthetic Substitute, Uncemented, Open Approach (ICD-10-PCS; principal; 2016-11-23 06:37)
DX: M16.11 Unilateral primary osteoarthritis, right hip (principal); F11.20 Opioid dependence, uncomplicated; E78.5 Hyperlipidemia, unspecified; G89.4 Chronic pain syndrome; I25.10 Atherosclerotic heart disease of native coronary artery without angina pectoris; K59.00 Constipation, unspecified; Z85.820 Personal history of malignant melanoma of skin; Z86.010 Personal history of colon polyps; Z95.0 Presence of cardiac pacemaker; K30 Functional dyspepsia; R10.9 Unspecified abdominal pain; Z87.891 Personal history of nicotine dependence; F10.10 Alcohol abuse, uncomplicated; E83.42 Hypomagnesemia; D64.9 Anemia, unspecified; E53.8 Deficiency of other specified B group vitamins
CPT/HCPCS: 73502; 76000; 80048; 80061; 80076; 82607; 82652; 82746; 83036; 83735; 84443; 85027; 86850; 86900; 86901; 94150; C1776; C9290; J0131; J0690; J1200; J1580; J1650; J2250; J2270; J2370; J2405; J2710; J3010; J3370; J3420; J3475; J7030; J7050; J7120